=== PATIENT | male | born 1955 | race African-American/Black ===

== ENCOUNTER 2025-04-18 11:40 | Inpatient (IN) | payer MEDICARE, MEDICAID ==
[~2025-04-18] VITALS: Ht 195.6 cm; Wt 82.6 kg
[2025-04-18 11:45] VITALS: O2SAT 100
[2025-04-18] MEDS: PIPERACILLIN/TAZO 3.375G/50ML 50 ML IV STA (11:59)
[2025-04-18] MEDS ORDERED: CLINDAMYCIN 600 MG in DEXTROSE 5% WATER 50 ML IV ONE (12:00)
[2025-04-18] MEDS: METRONIDAZOLE 500 MG PREMIX 100 ML IV ONE (12:00)
[2025-04-18 12:38] LABS: BASOPHILS % 0.4 % (0.0-2.0); EOSINOPHILS % 1.1 % (0.0-5.0); HEMATOCRIT. 37.9 % (42.0-52.0); HEMOGLOBIN. 12.5 g/dL (14.0-18.0); LYMPHOCYTES % 15.5 % (20.0-50.0); MEAN PLATELET VOLUME 9.9 fl (7.4-10.4); MONOCYTES % 11.5 % (2.0-8.0); NEUTROPHILS % 71.5 % (40.0-76.0); PLATELET 225 x1000/uL (130-400); RED BLOOD CELL COUNT 4.50 mill/uL (4.7-6.1); RED CELL DISTRIBUTION WIDTH 12.8 % (11.6-14.6)
[2025-04-18 12:53] LABS: CREATININE 0.7 mg/dL (0.6-1.3); PROTEIN TOTAL 7.4 g/dL (6.0-8.3); UREA NITROGEN BLOOD 10 mg/dL (9-23)
[2025-04-18 12:54] LABS: ASPARTATE AMINOTRANSFERASE 14 IU/L (<34)
[2025-04-18 12:55] LABS: BILIRUBIN TOTAL 0.8 mg/dL (0.1-1.0)
[2025-04-18] MEDS ORDERED: VANCOMYCIN 1000MG/250ML 250 ML IV STA ×2 (13:50)
[2025-04-18] MEDS: CLINDAMYCIN 600MG PREMIX 50 ML IV SCH (13:52)
[2025-04-18] MEDS ORDERED: IOHEXOL-300 100 ML BOTTLE ONE (14:04)
[2025-04-18] MEDS ORDERED: LACTATED RINGERS 1,000 ML IV SCH (14:15)
[2025-04-18] MEDS: VANCOMYCIN 1G PREMIX 200 ML IV STA (14:30)
[2025-04-18 14:59] LABS: INR 1.1
[2025-04-18] MEDS ORDERED: POLYMYXIN B SULFATE 500000 UNITS/VIAL ONE (16:14)
[2025-04-18] MEDS ORDERED: BUPIVACAINE HCL/PF 0.5% (5MG/ML) 10ML ONE (17:32)
[2025-04-18] MEDS ORDERED: MEPERIDINE HCL/PF 25MG/ML CPJ IV PRN (17:45)
[2025-04-18] MEDS ORDERED: FAMOTIDINE 20MG/2ML VIAL IV PRN (17:45)
[2025-04-18] MEDS ORDERED: LABETALOL 5MG/ML 4ML INJ IV PRN (17:45)
[2025-04-18] MEDS ORDERED: ONDANSETRON HCL 4MG/2ML INJ IV PRN ×2 (17:45→22:00)
[2025-04-18] MEDS ORDERED: HYDRALAZINE 20MG/ML VIAL IV PRN ×2 (17:45)
[2025-04-18] MEDS ORDERED: ACETAMINOPHEN 1,000MG/100ML PREMIX IV PRN (17:45)
[2025-04-18] MEDS ORDERED: ACETAMINOPHEN 1000MG/100ML 100 ML IV PRN (18:00)
[2025-04-18] MEDS: HYDROMORPHONE HCL/PF 1MG/ML INJ IV PRN (18:47)
[2025-04-18 20:00] VITALS: BP 121/69; PULSE 82; RESP 20; TEMP 36.1; O2SAT 99
[2025-04-18] MEDS ORDERED: METF-1149 MT (21:53)
[2025-04-18] MEDS ORDERED: IPRATROPIUM/ALBUTEROL 0.5-3(2.5)MG/3ML NEB HHN PRN (22:00)
[2025-04-18] MEDS ORDERED: CLONIDINE 0.1MG TABLET PO PRN (22:00)
[2025-04-18] MEDS ORDERED: ACETAMINOPHEN 325MG TABLET PO PRN ×2 (22:00)
[2025-04-18] MEDS ORDERED: DOCUSATE SODIUM 100MG CAPSULE PO PRN (22:00)
[2025-04-18] MEDS ORDERED: GUAIFENESIN 200MG/10ML SUGAR FREE UDC PO PRN (22:00)
[2025-04-18] MEDS ORDERED: LORAZEPAM 0.5MG TABLET PO PRN (22:00)
[2025-04-18] MEDS ORDERED: DEXTROSE 50% WATER 50ML SYRINGE IV PRN (22:00)
[2025-04-18] MEDS ORDERED: NALOXONE HCL 0.4MG/ML VIAL IV PRN (22:15)
[2025-04-18] MEDS: PIPERACILLIN/TAZO 3.375G/50ML 50 ML IV SCH (22:23)
[2025-04-18 23:10] VITALS: BP 121/69; PULSE 82; RESP 18; TEMP 36.14
[2025-04-19] VITALS: BP 98/55; PULSE 75; RESP 18; TEMP 36.1; O2SAT 100
[2025-04-19] MEDS: CLINDAMYCIN 600MG PREMIX 50 ML IV SCH (00:31)
[2025-04-19] MEDS: VANCOMYCIN 750MG PREMIX 150 ML IV SCH (01:11)
[2025-04-19 04:00] VITALS: BP 100/59; PULSE 75; RESP 18; TEMP 36.5; O2SAT 100
[2025-04-19] MEDS: HYDROCODONE/ACETAMINOPHEN 5/325MG TABLET PO PRN (04:57)
[2025-04-19] MEDS: SODIUM CHLORIDE 0.9% 1,000 ML IV SCH (06:18)
[2025-04-19 06:59] LABS: HEMATOCRIT. 37.4 % (42.0-52.0); HEMOGLOBIN. 12.1 g/dL (14.0-18.0); MEAN PLATELET VOLUME 10.0 fl (7.4-10.4); PLATELET 197 x1000/uL (130-400); RED BLOOD CELL COUNT 4.38 mill/uL (4.7-6.1); RED CELL DISTRIBUTION WIDTH 12.8 % (11.6-14.6)
[2025-04-19 07:26] LABS: CREATININE 0.8 mg/dL (0.6-1.3); TRIGLYCERIDE 63 mg/dL (0-150); UREA NITROGEN BLOOD 14 mg/dL (9-23)
[2025-04-19 07:27] LABS: LDL CHOLESTEROL 88 mg/dL (5-100)
[2025-04-19 08:00] VITALS: BP 94/52; PULSE 80; RESP 20; TEMP 37.2; O2SAT 100
[2025-04-19] MEDS: BLOOD SUGAR DIAGNOSTIC STRIP TEST SCH (08:05)
[2025-04-19] MEDS: INSULIN LISPRO 100 UNITS/ML SUBCUT SCH (08:10)
[2025-04-19] MEDS: PANTOPRAZOLE 40MG DR TABLET PO SCH (09:15)
[2025-04-19] MEDS: ENOXAPARIN 40MG/0.4ML SYR SUBCUT SCH (09:16)
[2025-04-19 09:52] LABS: FOLIC ACID (FOLATE) SERUM 15.02 ng/mL (>5.38); VITAMIN B12 SERUM 480 pg/mL (211-911)
[2025-04-19 12:00] VITALS: BP 102/52; PULSE 86; RESP 20; TEMP 36.6; O2SAT 100
[2025-04-19] MEDS: INSULIN GLARGINE 100 UNITS/ML SUBCUT SCH (12:42)
[2025-04-19 16:00] VITALS: BP 109/53; PULSE 92; RESP 20; TEMP 37.2; O2SAT 97
[2025-04-19 16:21] LABS: LYMPHOCYTES % MANUAL 11.0 % (20.0-50.0); MONOCYTES % MANUAL 8.0 % (2.0-8.0); NEUTROPHILS % MANUAL 81.0 % (45.0-75.0); PLATELET ESTIMATE NORMAL
[2025-04-19 20:40] VITALS: BP 111/67; PULSE 92; RESP 19; TEMP 36.3; O2SAT 98
[2025-04-19] MEDS: ALPRAZOLAM 0.5 MG TABLET PO SCH (21:34)
[2025-04-19] MEDS: VANCOMYCIN 1GM PMX (XELLIA) 200 ML IV SCH (22:04)
[2025-04-20 00:21] VITALS: BP 111/66; PULSE 89; RESP 20; TEMP 36.5; O2SAT 97
[2025-04-20 04:00] VITALS: BP 125/73; PULSE 97; RESP 18; TEMP 36.8; O2SAT 98
[2025-04-20 08:00] VITALS: BP 109/65; PULSE 85; RESP 20; TEMP 36.3; O2SAT 98
[2025-04-20 12:00] VITALS: BP 118/79; PULSE 88; RESP 24; TEMP 36.7; O2SAT 95
[2025-04-20 12:30] LABS: CREATININE 0.7 mg/dL (0.6-1.3)
[2025-04-20 12:31] LABS: UREA NITROGEN BLOOD 8 mg/dL (9-23)
[2025-04-20 16:00] VITALS: BP 124/72; PULSE 91; RESP 20; TEMP 37.1; O2SAT 99
[2025-04-20 20:00] VITALS: BP 127/61; PULSE 87; RESP 20; TEMP 36.7; O2SAT 100
[2025-04-21] VITALS: BP 136/81; PULSE 86; RESP 20; TEMP 36.6; O2SAT 98
[2025-04-21 04:00] VITALS: BP 128/75; PULSE 77; RESP 20; TEMP 36.4; O2SAT 100
[2025-04-21 07:41] LABS: CREATININE 0.7 mg/dL (0.6-1.3); UREA NITROGEN BLOOD 6 mg/dL (9-23)
[2025-04-21 08:00] VITALS: BP 133/79; PULSE 84; RESP 18; TEMP 36.3; O2SAT 98
[2025-04-21 09:11] VITALS: BP 133/79; PULSE 84; RESP 16; TEMP 97.4
[2025-04-21 12:00] VITALS: BP 132/117; PULSE 90; RESP 20; TEMP 37.1; O2SAT 97
== END 2025-04-21 16:23 | DRG 853 ==
LOC: ER 11:40 → EDBEDREQTM 15:45 → EDBEDREQSVC 15:45 → EDBEDREQ 15:45 → 7WST 20:40
PROVIDERS: ADMIT Internal Medicine; ATTEND Internal Medicine
PROC: 0JBM0ZZ Excision of Left Upper Leg Subcutaneous Tissue and Fascia, Open Approach (ICD-10-PCS; principal; 2025-04-18)
DX: A41.9 Sepsis, unspecified organism (principal); J69.0 Pneumonitis due to inhalation of food and vomit; E87.20 Acidosis, unspecified; E87.0 Hyperosmolality and hypernatremia; N49.3 Fournier gangrene; L02.214 Cutaneous abscess of groin; R13.10 Dysphagia, unspecified; N39.0 Urinary tract infection, site not specified; L03.116 Cellulitis of left lower limb; N17.9 Acute kidney failure, unspecified; E11.65 Type 2 diabetes mellitus with hyperglycemia; F03.90 Unspecified dementia, unspecified severity, without behavioral disturbance, psychotic disturbance, mood disturbance, and anxiety; I10 Essential (primary) hypertension; I69.30 Unspecified sequelae of cerebral infarction; Z59.01 Sheltered homelessness; E86.0 Dehydration; R29.810 Facial weakness; F12.90 Cannabis use, unspecified, uncomplicated; E87.6 Hypokalemia; Z93.1 Gastrostomy status; Z74.01 Bed confinement status; F17.210 Nicotine dependence, cigarettes, uncomplicated; Z79.84 Long term (current) use of oral hypoglycemic drugs
CPT/HCPCS: 36415; 72193; 80048; 80053; 80061; 80202; 82607; 82746; 82962; 83036; 83605; 84145; 85025; 86850; 86900; 87070; 87075; 88305; 93970; 96365; 96366; 99291; A4615; J0665; J1171; J1650; J1815; J2543; J3373; J3490; J7030; J7060; Q9967